=== PATIENT | female | born 1955 | race Caucasian/White ===

== ENCOUNTER 2018-09-11 15:23 | Emergency (ER) | payer MEDICAID ==
[2018-09-11] MEDS ORDERED: BENZONATATE 100 MG CAPSULE PO ONE (15:38)
[2018-09-11] MEDS ORDERED: AZITHROMYCIN 500 MG TABLET PO ONE (15:38)
--- NOTE | 2018-09-11 15:44 | Emergency Department Record ---
History of Present Illness - General Chief Complaint: Cough Stated Complaint: COUGH,RIB PAIN, Time Seen by Provider: 09/11/18 15:34 Source: Patient Mode of Arrival: Ambulatory Limitations: No limitations - History of Present Illness Initial Comments: 63 yo female presents with a cough for three weeks. She states it has been only minimally productive. No fever. She cough more at night than the daytime. No blood in the sputum. She smokes. At times she coughs very hard and it hurts over the right ribs. No rash. No history of shingles. No COPD history per the patient . No nausea, vomiting, diarrhea. No chest pain or shortness of breath. MD Complaint: Cough, Nasal congestion -: Week(s) (3) Severity: Moderate Severity scale (1-10): 1 Quality: Sharp Consistency: Constant Improves With: Other (avoiding coughing) Context: Other Associated Symptoms: Cough - Related Data Previous Rx's Medication Instructions Recorded Azithromycin [Zithromax] 250 mg PO DAILY #4 tab 09/11/18 Benzonatate [Tessalon] 100 mg PO Q8H #20 capsule 09/11/18 Allergies Allergy/AdvReac Type Severity Reaction Status Date / Time No Known Drug Allergies Allergy Verified 09/11/18 15:33 Travel Screening - Travel/Exposure Within Last 30 Days Have you traveled within the last 30 days?: No - Travel/Exposure Within Last Year Have you traveled outside the [place] in the last year?: No - Additonal Travel Details Have you been exposed to anyone with a communicable illness?: No - Travel Symptoms Symptom Screening: None Review of Systems Constitutional: Denies: Chills, Fever, Malaise, Weakness Eyes: Denies: Eye discharge ENT: Reports: Congestion. Denies: Ear pain, Epistaxis, Throat pain Respiratory: Reports: Cough. Denies: Dyspnea, Hemoptysis, Stridor, Wheezes Cardiovascular: Reports: Chest pain (ribs on the right with forced cough) Endocrine: Denies: Fatigue, Polydipsia, Polyuria Gastrointestinal: Denies: Abdominal pain, Diarrhea, Nausea, Vomiting Genitourinary: Denies: Dysuria Musculoskeletal: Denies: Arthralgia, Back pain, Joint swelling, Myalgia, Neck pain Skin: Denies: Bruising, Change in color, Rash Neurological: Denies: Confusion Psychiatric: Denies: Anxiety Hematological/Lymphatic: Denies: Easy bleeding, Easy bruising Past Medical History - SOCIAL HISTORY Smoking Status: Light tobacco smoker (<10/day) Alcohol Use: None Drug Use: None - RESPIRATORY Hx Respiratory Disorders: No - CARDIOVASCULAR Hx Cardio Disorders: No - NEURO Hx Neuro Disorders: No - GI Hx GI Disorders: No - Hx Genitourinary Disorders: No - ENDOCRINE Hx Endocrine Disorders: No Hx Diabetes: No Hx Thyroid Disease: No - MUSCULOSKELETAL Hx Musculoskeletal Disorders: No - PSYCH Hx Psych Problems: No - HEMATOLOGY/ONCOLOGY Hx Hematology/Oncology Disorders: No Hx Cancer: No Family Medical History Any Significant Family History?: Yes Family Hx Comment (NOT TO BE USED IN PLACE OF ITEMS BELOW): denies Physical Exam - General General Appearance: Alert, Oriented x3, Cooperative, No acute distress Limitations: No limitations - Head Head exam: Atraumatic, Normal inspection - Eye Eye exam: Normal appearance, PERRL. negative: Conjunctival injection - ENT ENT exam: Normal exam Ear exam: Normal external inspection Nasal Exam: Normal inspection Mouth exam: Normal external inspection Teeth exam: Other (no teeth) Throat exam: Normal inspection - Neck Neck exam: Normal inspection, Full ROM. negative: Lymphadenopathy - Respiratory Respiratory exam: Normal lung sounds bilaterally, Chest wall tenderness (tender right side, anterior under the right breast) - Cardiovascular Cardiovascular Exam: Regular rate, Normal rhythm, Normal heart sounds. negative: Diastolic murmur, Irregular rhythm, Systolic murmur Peripheral Pulses: 2+: Radial (R), Radial (L) - GI/Abdominal GI/Abdominal exam: Soft. negative: Distended, Guarding, Tenderness - Rectal Rectal exam: Deferred - exam: Deferred - Extremities Extremities exam: Normal inspection. negative: Calf tenderness, Pedal edema, Tenderness - Back Back exam: Denies: CVA tenderness (R), CVA tenderness (L) - Neurological Neurological exam: Alert, Oriented X3 - Psychiatric Psychiatric exam: Normal affect, Normal mood - Skin Skin exam: Dry, Intact, Normal color, Warm, Other (No shingles rash on the area on pain) Course Vital Signs 09/11/18 15:25 Temperature 98.3 F Pulse Rate 97 H Respiratory 18 Rate Blood Pressure 159/83 Pulse Ox 96 - Reevaluation(s) Reevaluation #1: 09/11/18 16:18 The chest XR was reviewed No acute changes. No mass or infiltrate She was encourage to have close follow up with her PCP in the next week if not improved Disposition Disposition: Discharge Clinical Impression: Bronchitis Disposition: Home, Self-Care Condition: (1) Good Instructions: Acute Bronchitis (ED) Additional Instructions: Call your doctor for the next available follow up appointment Review this ER visit and the tests performed with your family doctor Return to the ER for a recheck if worse, any new concerns or questions Take the prescriptions provided as directed Prescriptions: Benzonatate [Tessalon] 100 mg PO Q8H #20 capsule Azithromycin [Zithromax] 250 mg PO DAILY #4 tab Forms: Patient Portal Access Time of Disposition: 16:18 Quality - Quality Measures Quality Measures: N/A - Blood Pressure Screening Does Patient Have Any of the Following: No Blood Pressure Classification: Pre-Hypertensive BP Reading Systolic Measurement: 159 Diastolic Measurement: 83 Screening for High Blood Pressure: < Pre-Hypertensive BP, F/U Documented > [G8950] Pre-Hypertensive Follow-up Interventions: Referral to alternative/primary care provider.
--- NOTE | 2018-09-12 07:53 | RADIOLOGY REPORT ---
EXAM: CHEST, TWO VIEWS HISTORY: COUGH A FEW TIMES A WEEK. TECHNIQUE: Frontal and lateral views of the chest were obtained. FINDINGS: The cardiomediastinal silhouette is normal in size. Calcification is noted within the aorta. The pulmonary vasculature is not overly congested. No focal consolidation, pleural effusion, or pneumothorax is evident. IMPRESSION: NO EVIDENCE FOR PNEUMONIA OR PULMONARY EDEMA. JOB NUMBER: [id number] MTDD
== END 2018-09-11 16:30 | disposition home or self-care (01) ==
LOC: ER 15:23
DX: J20.9 Acute bronchitis, unspecified (principal); F17.210 Nicotine dependence, cigarettes, uncomplicated
CPT/HCPCS: 71046; 99283

== ENCOUNTER 2018-09-21 18:28 | Observation (INO) | payer MEDICAID ==
[2018-09-21] MEDS ORDERED: IPRATROPIUM/ALBUTEROL (0.5MG/3MG) NEB INH ONE (18:47)
[2018-09-21] MEDS ORDERED: METHYLPREDNISOLONE PF 125MG/VIAL IVP ONE (18:47)
--- NOTE | 2018-09-21 18:51 | Emergency Department Record ---
History of Present Illness - General Chief Complaint: Cough Stated Complaint: COUGHING/HERE ON TUESDAY Time Seen by Provider: 09/21/18 18:42 Source: Patient, Family Mode of Arrival: Ambulatory Limitations: No limitations - History of Present Illness Initial Comments: 63 yo female presents with a persistent cough and wheeze for the last two weeks. She denies fever. It does hurt to cough. She has minimal productive sputum. She was seen in the ED 10 days ago. She finished an antibiotic. No improvement. She does continue to smoke. The ribs on both sides hurt with the coughing. No hemoptysis. She has not seen her PCP in the interim. MD Complaint: Cough, Nasal congestion Onset/Timin -: Week(s) Severity: Moderate Quality: Aching Consistency: Constant Improves With: Nothing Worsens With: Other (coughing) Context: Sick contacts Associated Symptoms: Cough Treatments Prior to Arrival: Antibiotics - Related Data Home Medications Medication Instructions Recorded Confirmed Last Taken Cholecalciferol (Vitamin D3) 5,000 unit PO DAILY 09/21/18 09/21/18 09/21/18 [Vitamin D3] Previous Rx's Medication Instructions Recorded Azithromycin 250 mg PO DAILY #6 tablet 09/21/18 Benzonatate [Tessalon] 1 cap PO Q8H PRN #20 cap 09/21/18 Hydrocodone/APAP 5/325Mg [[place] 1 each PO Q6H #12 tab 09/21/18 5Mg/325Mg] Prednisone [Prednisone 20Mg] 20 mg PO BID #10 tab 09/21/18 Allergies Allergy/AdvReac Type Severity Reaction Status Date / Time No Known Drug Allergies Allergy Verified 09/21/18 18:32 Travel Screening - Travel/Exposure Within Last 30 Days Have you traveled within the last 30 days?: No - Travel/Exposure Within Last Year Have you traveled outside the [place] in the last year?: No - Additonal Travel Details Have you been exposed to anyone with a communicable illness?: No - Travel Symptoms Symptom Screening: None Review of Systems Constitutional: Denies: Chills, Fever, Malaise, Weakness Eyes: Denies: Eye discharge, Eye pain, Photophobia, Vision change ENT: Reports: Congestion. Denies: Throat pain Respiratory: Reports: Cough, Wheezes. Denies: Hemoptysis Cardiovascular: Reports: Chest pain (with coughing both sided of the lower ribs hurt) Endocrine: Denies: Fatigue, Polydipsia, Polyuria Gastrointestinal: Denies: Abdominal pain, Diarrhea, Nausea, Vomiting Genitourinary: Denies: Dysuria Musculoskeletal: Denies: Arthralgia, Back pain, Myalgia, Neck pain Skin: Denies: Bruising, Change in color, Rash Neurological: Denies: Headache, Numbness Psychiatric: Denies: Anxiety Hematological/Lymphatic: Denies: Easy bleeding, Easy bruising Past Medical History - SOCIAL HISTORY Smoking Status: Light tobacco smoker (<10/day) Alcohol Use: None Drug Use: None - RESPIRATORY Hx Respiratory Disorders: No - CARDIOVASCULAR Hx Cardio Disorders: No - NEURO Hx Neuro Disorders: No - GI Hx GI Disorders: No - Hx Genitourinary Disorders: No - ENDOCRINE Hx Endocrine Disorders: No Hx Diabetes: No Hx Thyroid Disease: No - MUSCULOSKELETAL Hx Musculoskeletal Disorders: No - PSYCH Hx Psych Problems: No - HEMATOLOGY/ONCOLOGY Hx Hematology/Oncology Disorders: No Hx Cancer: No Family Medical History Any Significant Family History?: No Family Hx Comment (NOT TO BE USED IN PLACE OF ITEMS BELOW): denies Physical Exam - General General Appearance: Alert, Oriented x3, Cooperative, No acute distress Limitations: No limitations - Head Head exam: Atraumatic, Normocephalic, Normal inspection - Eye Eye exam: Normal appearance, PERRL. negative: Conjunctival injection, Scleral icterus - ENT ENT exam: Normal exam, Mucous membranes moist Ear exam: Normal external inspection Nasal Exam: Normal inspection Mouth exam: Normal external inspection - Neck Neck exam: Normal inspection. negative: Lymphadenopathy - Respiratory Respiratory exam: Chest wall tenderness (Tender bilateral lower ribs ), Decreased breath sounds, Wheezes. negative: Normal lung sounds bilaterally - Cardiovascular Cardiovascular Exam: Regular rate, Normal rhythm, Normal heart sounds - GI/Abdominal GI/Abdominal exam: Soft. negative: Tenderness - Rectal Rectal exam: Deferred - exam: Deferred - Extremities Extremities exam: Normal inspection, Full ROM. negative: Calf tenderness, Pedal edema, Tenderness - Back Back exam: Denies: CVA tenderness (R), CVA tenderness (L), Paraspinal tenderness, Tenderness, Vertebral tenderness - Neurological Neurological exam: Alert, Oriented X3 - Psychiatric Psychiatric exam: Normal affect, Normal mood - Skin Skin exam: Dry, Intact, Normal color, Warm Course Vital Signs 09/21/18 18:34 Temperature 98 F Pulse Rate 95 H Respiratory 20 Rate Blood Pressure 155/89 Pulse Ox 96 - Reevaluation(s) Reevaluation #1: 09/21/18 18:52 Normal XR on 09/1109/21/18 19:29 The labs were reviewed K is 2.8 EKG ordered The D-dimer is elevated. CTA ordered 09/21/18 19:54 I was informed the CT at [facility] is non functional The patient was informed of our need to transport her to [facility] radiology for the CT EKG #1: 19:37 Rate: 93 Rhythm: sinus [place]: normal Intervals: normal ST segments: normal rsr' Prior: non 09/21/18 22:44 09/21/18 23:[address] was reviewed. No PE, small R effusion, mildly displaced R 6,7,8th rib fractures. The results were discussed with the patient. Her saturations are in the upper 80's to 90. I discussed that she has early epmphysema and needs to stop smoking. Respiratory will see the patient for instructions for an inhaler and I/S. We discussed treatment of the COPD and rib fractures. The pain is there but tolerable. 09/21/18 23:39 The repeat potassium remained low at 2.8 Given her multiple rib fractures, low potassium and marginal oxygenation levels she will be observed 09/22/18 00:11 Medical Decision Making - Lab Data Result diagrams: 09/21/18 19:04 09/21/18 23:59 Disposition Disposition: Admit Clinical Impression: Hypokalemia, Rib fractures, Bronchitis, Hypoxia Disposition: Still a Patient at [facility] Decision to Admit: Admit from ER Decision to Admit Date: 09/22/18 Decision to Admit Time: 00:22 Condition: (1) Good Time of Disposition: 23:46 Quality - Quality Measures Quality Measures: N/A - Blood Pressure Screening Does Patient Have Any of the Following: No Blood Pressure Classification: Pre-Hypertensive BP Reading Systolic Measurement: 155 Diastolic Measurement: 89 Screening for High Blood Pressure: < Pre-Hypertensive BP, F/U Documented > [G8950] Pre-Hypertensive Follow-up Interventions: Referral to alternative/primary care provider.
[2018-09-21 19:09] LABS: ABSOLUTE NEUTROPHIL COUNT 4.37; BASO % 0.8 % (0-6); EOS % 3.5 % (0-6); GRAN % 58.1 % (47-80); HEMATOCRIT 38.2 % (35.0-47.0); HEMOGLOBIN 12.4 gm/dl (11.6-16.0); LYMPH % 28.6 % (16-45); MEAN CELL VOLUME 91.6 fl (81-97); MEAN CORPUSCULAR HEMOGLOBIN 29.7 pg (27-33); MEAN CORPUSCULAR HGB CONC 32.5 g/dl (32-36); MEAN PLATELET VOLUME 9.9 fl (7.4-10.4); PLATELET COUNT 461 K/uL (130-400); RED BLOOD COUNT 4.17 M/uL (3.80-5.40); RED CELL DISTRIBUTION WIDTH 14.6 % (11.5-14.5); WHITE BLOOD COUNT W/O DIFF 7.5 K/uL (4.2-12.2)
[2018-09-21 19:17] LABS: BLOOD UREA NITROGEN 10 mg/dL (8-23); CREATININE 0.8 mg/dL (0.5-0.9); EST GLOMERULAR FILTRATION RATE > 60 mL/min
[2018-09-21 19:20] LABS: GLUCOSE,RANDOM 109 mg/dL (74-109)
[2018-09-21] MEDS ORDERED: SOD CHLOR 0.9% WITH KCL 40MEQ 40 MEQ/1,000 ML IV.SOLN IV ONE (19:28)
[2018-09-21] MEDS ORDERED: HYDROCODONE/APAP 5/325MG TABLET PO ONE (23:33)
[2018-09-21] MEDS ORDERED: ALBUTEROL HFA 8 GM INHALER INH ONE (23:33)
[2018-09-22] MEDS ORDERED: SOD CHLOR 0.9% WITH KCL 40MEQ 40 MEQ/1,000 ML IV.SOLN IV ONE (00:36)
[2018-09-22] MEDS ORDERED: ALBUTEROL SULFATE (0.083%) 2.5 MG/3 ML NEB INH PRN (00:36)
[2018-09-22] MEDS: IPRATROPIUM/ALBUTEROL (0.5MG/3MG) NEB INH SCH ×4 (06:16→17:51)
[2018-09-22 06:43] LABS: ALB/GLOB RATIO 1.2 (1.1-1.8); ALBUMIN 3.2 g/dL (4.0-5.0); ALKALINE PHOSPHATASE 89 U/L (35-104); ALT/SGPT 21 U/L (<33); AST/SGOT 18 U/L (10.0-35.0); BLOOD UREA NITROGEN 13 mg/dL (8-23); CREATININE 0.6 mg/dL (0.5-0.9); EST GLOMERULAR FILTRATION RATE > 60 mL/min; GLUCOSE,RANDOM 149 mg/dL (74-109); TOTAL PROTEIN 5.8 g/dL (6.6-8.7)
--- NOTE | 2018-09-22 09:21 | History & Physical ---
History of Present Illness - Date of Service Date of Service for History & Physical: 09/22/18 - History of Present Illness Admitting Diagnosis: multiple rib fractures, copd, hypokalemia History of Present Illness: Mrs. Gonzales is a 63 y/o female who comes in with complaint of ongoing cough which was non-productive for the past 2 weeks. She initially came to [facility] ED on September 13 and was given antibiotics which she says didn't resolve her symptoms and she continued to cough. The patient also notes having abdominal pain which she says has gotten progressively worse, especially when she coughs. She has a 40 pack year smoking history but says that she now only smokes 5 cigarettes daily. She denies history of COPD and does not use inhalers at home. Denies fevers, chills, shortness of breath or chest pain. In the ED a CTA was done to rule out PE due to elevated D-dimer. ED course: Labs: hypokalemia, K+ 2.8, CTA negative for PE but showed emphysema and 5,6,7th right rib fractures. PCP: Dr. Burke Hawthorne. Travel Screening - Travel/Exposure Within Last 30 Days Have you traveled within the last 30 days?: No - Travel/Exposure Within Last Year Have you traveled outside the [place] in the last year?: No - Additonal Travel Details Have you been exposed to anyone with a communicable illness?: No Exposure Details:: [facility] - Travel Symptoms Symptom Screening: None Review of Systems Constitutional: Denies: Chills, Fever, Malaise, Weakness Eyes: Denies: Eye discharge, Eye pain, Photophobia, Vision change ENT: Reports: Congestion. Denies: Throat pain Respiratory: Reports: Cough, Wheezes. Denies: Hemoptysis Cardiovascular: Reports: Chest pain (with coughing both sided of the lower ribs hurt) Endocrine: Denies: Fatigue, Polydipsia, Polyuria Gastrointestinal: Denies: Abdominal pain, Diarrhea, Nausea, Vomiting Genitourinary: Denies: Dysuria Musculoskeletal: Denies: Arthralgia, Back pain, Myalgia, Neck pain Skin: Denies: Bruising, Change in color, Rash Neurological: Denies: Headache, Numbness Psychiatric: Denies: Anxiety Hematological/Lymphatic: Denies: Easy bleeding, Easy bruising Past Medical History - SOCIAL HISTORY Smoking Status: Light tobacco smoker (<10/day) Alcohol Use: None Drug Use: None - RESPIRATORY Hx Respiratory Disorders: No - CARDIOVASCULAR Hx Cardio Disorders: No - NEURO Hx Neuro Disorders: No - GI Hx GI Disorders: No - Hx Genitourinary Disorders: No - ENDOCRINE Hx Endocrine Disorders: No Hx Diabetes: No Hx Thyroid Disease: No - MUSCULOSKELETAL Hx Musculoskeletal Disorders: No - PSYCH Hx Psych Problems: No - HEMATOLOGY/ONCOLOGY Hx Hematology/Oncology Disorders: No Hx Cancer: No Family Medical History Any Significant Family History?: No Family Hx Comment (NOT TO BE USED IN PLACE OF ITEMS BELOW): denies H&P Meds/Allergies - Allergies Allergies: Allergies Allergy/AdvReac Type Severity Reaction Status Date / Time No Known Drug Allergies Allergy Verified 09/21/18 18:32 - Home Medications Home Medications Medication Instructions Recorded Confirmed Last Taken Cholecalciferol (Vitamin D3) 5,000 unit PO DAILY 09/21/18 09/21/18 09/21/18 [Vitamin D3] Previous Rx's Medication Instructions Recorded Azithromycin 250 mg PO DAILY #6 tablet 09/21/18 Benzonatate [Tessalon] 1 cap PO Q8H PRN #20 cap 09/21/18 Hydrocodone/APAP 5/325Mg [[place] 1 each PO Q6H #12 tab 09/21/18 5Mg/325Mg] Prednisone [Prednisone 20Mg] 20 mg PO BID #10 tab 09/21/18 - Active Medications Active Medications: Current Medications Albuterol Sulfate (Albuterol Sulfate) 2.5 mg INH RESP.Q4H PRN PRN Reason: DIFFICULTY IN BREATHING Albuterol/Ipratropium (Duoneb) 3 ml INH RESP.Q4H.[facility] Last Admin: 09/22/18 06:16 Dose: 3 ml Documented by: Azithromycin (Zithromax) 500 mg PO DAILY [facility] Methylprednisolone Sodium Succinate (Solu-Medrol) 60 mg IVP DAILY [facility] Vitamin D (Vitamin D3) 5,000 unit PO DAILY [facility] Physical Exam - Vital Signs Vital Signs: Vital Signs - Last 24 Hrs Temp Pulse Pulse Pulse Resp BP BP 09/22/18 08:00 98.0 F 95 H 17 160/79 09/22/18 06:17 09/22/18 06:16 96 H 20 09/22/18 02:06 80 88 20 09/22/18 00:45 98.4 F 88 20 138/71 09/22/18 00:16 09/22/18 00:14 89 160/90 09/21/18 23:39 94 H 22 09/21/18 23:34 91 H 28 H 160/87 09/21/18 23:23 94 H 140/69 09/21/18 23:07 91 H 145/79 09/21/18 22:53 92 H 141/73 09/21/18 22:03 170/84 09/21/18 21:44 93 H 159/62 09/21/18 21:34 93 H 161/81 09/21/18 21:24 163/94 09/21/18 21:06 88 24 137/89 09/21/18 20:25 88 20 147/81 09/21/18 18:57 86 20 09/21/18 18:34 98 F 95 H 20 155/89 Pulse Ox 09/22/18 08:00 93 L 09/22/18 06:17 96 09/22/18 06:16 96 09/22/18 02:06 09/22/18 00:45 94 L 09/22/18 00:16 94 L 09/22/18 00:14 90 L 09/21/18 23:39 09/21/18 23:34 92 L 09/21/18 23:23 92 L 09/21/18 23:07 92 L 09/21/18 22:53 92 L 09/21/18 22:03 92 L 09/21/18 21:44 92 L 09/21/18 21:34 93 L 09/21/18 21:24 94 L 09/21/18 21:06 93 L 09/21/18 20:25 96 09/21/18 18:57 96 09/21/18 18:34 96 - General General Appearance: Alert, Oriented x3, Cooperative, No acute distress Limitations: No limitations - Head Head exam: Atraumatic, Normocephalic, Normal inspection - Eye Eye exam: Normal appearance, PERRL. negative: Conjunctival injection, Scleral icterus - ENT ENT exam: Normal exam, Mucous membranes moist Ear exam: Normal external inspection Nasal Exam: Normal inspection Mouth exam: Normal external inspection - Neck Neck exam: Normal inspection. negative: Lymphadenopathy - Respiratory Respiratory exam: Chest wall tenderness (Tender bilateral lower ribs ), Decreased breath sounds, Wheezes (upper lung keller). negative: Normal lung sounds bilaterally - Cardiovascular Cardiovascular Exam: Regular rate, Normal rhythm, Normal heart sounds Peripheral Pulses: 3+: Radial (R), Radial (L), Dorsalis Pedis (R), Dorsalis Pedis (L) - GI/Abdominal GI/Abdominal exam: Soft. negative: Tenderness - Rectal Rectal exam: Deferred - exam: Deferred - Extremities Extremities exam: Normal inspection, Full ROM. negative: Calf tenderness, Pedal edema, Tenderness - Back Back exam: Denies: CVA tenderness (R), CVA tenderness (L), Paraspinal tenderness, Tenderness, Vertebral tenderness - Neurological Neurological exam: Alert, Oriented X3 - Psychiatric Psychiatric exam: Normal affect, Normal mood - Skin Skin exam: Dry, Intact, Normal color, Warm Results - Labs Result Diagrams: 09/21/18 19:04 09/22/18 06:15 Labs Last 24 Hours: Laboratory Results - last 24 hr 09/21/18 09/21/18 09/21/18 19:04 19:04 19:04 WBC 7.5 RBC 4.17 Hgb 12.4 Hct 38.2 MCV 91.6 MCH 29.7 MCHC 32.5 RDW 14.6 H Plt Count 461 H MPV 9.9 Gran % 58.1 Lymphocytes % 28.6 Monocytes % 9.0 Eosinophils % 3.5 Basophils % 0.8 Absolute Neutrophils 4.37 D-Dimer 2.13 H Sodium 146 H Potassium 2.8 L* Chloride 104 Carbon Dioxide 30.0 H Anion Gap 12.0 BUN 10 Creatinine 0.8 Estimated GFR > 60 Random Glucose 109 Calcium 8.8 Total Bilirubin AST ALT Alkaline Phosphatase Total Protein Albumin Globulin Albumin/Globulin Ratio 09/21/18 09/22/18 23:59 06:15 WBC RBC Hgb Hct MCV MCH MCHC RDW Plt Count MPV Gran % Lymphocytes % Monocytes % Eosinophils % Basophils % Absolute Neutrophils D-Dimer Sodium 147 H Potassium 2.8 L* 4.0 Chloride 110 H Carbon Dioxide 28.0 Anion Gap 9.0 BUN 13 Creatinine 0.6 Estimated GFR > 60 Random Glucose 149 H Calcium 8.5 L Total Bilirubin 0.30 AST 18 ALT 21 Alkaline Phosphatase 89 Total Protein 5.8 L Albumin 3.2 L Globulin 2.6 Albumin/Globulin Ratio 1.2 VTE H&P Assessment - Risk for VTE Risk for VTE: Yes Risk Level: High Risk Assessment Date: 09/22/18 Risk Assessment Time: 09:16 VTE Orders Placed or Will Be Placed: Yes Plan - Detailed Diagnosis and Plan (1) Bronchitis Current Visit: Yes Status: Acute Base Code: J40 - BRONCHITIS, NOT SPECIFIED ACUTE OR CHRONIC Comment: 09/22/17: - Peristient non-productive cough likely 2/2 COPD. - CTA: negative for PE but with indication of emphysetamous changes. - 40 pk yr smoking hx. - Oxygen to keep sats > 92% - Duonebs q4H LANG, Albuterol nebs Q4H PRN, D/C Solumderol and start PO Prednisone 40mg QD. (2) Emphysema lung Current Visit: Yes Status: Acute Base Code: J43.9 - EMPHYSEMA, UNSPECIFIED Comment: 09/22/18: - CTA incidental finding of emphysema of the lungs. - 40 pk/yr smoking hx - Duonebs/Albuterol ordered Q4H. - Needs PFTs and further education for COPD as an outpatient. - Smoking cessation srongly encouraged. (3) Hypokalemia Current Visit: Yes Status: Acute Base Code: E87.6 - HYPOKALEMIA Comment: 09/22/18: - K 2.8 - Repleted with 40 meq IV and continuos in IVF. - Repeat K 4.0 (4) Rib fractures Current Visit: Yes Status: Acute Base Code: S22.39XA - FRACTURE OF ONE RIB, UNSP SIDE, INIT FOR CLOS FX Comment: 09/22/18: - Right 6,7,8th ribs fractrure likely 2/2 to violent cough. - [place] 5/325mg Q4H PRN. - Incentive Spirometery. (5) DVT prophylaxis Current Visit: Yes Status: Acute Base Code: Z29.9 - ENCOUNTER FOR PROPHYLACTIC MEASURES, UNSPECIFIED Comment: 09/22/18: - Lovenox 40 mg Sq, QD. (6) Smoker Current Visit: Yes Status: Acute Base Code: F17.200 - NICOTINE DEPENDENCE, UNSPECIFIED, UNCOMPLICATED Comment: 09/22/18: - 40 pk/yr hx - Nicotine patch ordered. (7) Full code status Current Visit: Yes Status: Acute Base Code: Z78.9 - OTHER SPECIFIED HEALTH STATUS Comment: 09/22/18: - Full code status.
[2018-09-22] MEDS ORDERED: HYDROCODONE/APAP 5/325MG TABLET PO ONE (09:34)
[2018-09-22] MEDS: BENZONATATE 100 MG CAPSULE PO PRN ×2 (09:46→15:52)
[2018-09-22] MEDS: HYDROCODONE/APAP 5/325MG TABLET PO PRN ×2 (09:47→15:54)
[2018-09-22] MEDS: NICOTINE 21 MG/24 HOUR PATCH TD SCH ×2 (09:48→09:54)
[2018-09-22] MEDS ORDERED: POTASSIUM CHLORIDE 20 MEQ TABLET PO SCH (10:00)
[2018-09-22] MEDS ORDERED: CHOLECALCIFEROL 1,000 UNIT TABLET PO SCH (10:00)
[2018-09-22] MEDS ORDERED: ENOXAPARIN 40 MG/0.4 ML SYR SC SCH (10:00)
[2018-09-22] MEDS ORDERED: METHYLPREDNISOLONE PF 125MG/VIAL IVP SCH (10:00)
[2018-09-22] MEDS ORDERED: AZITHROMYCIN 500 MG TABLET PO SCH (10:00)
--- NOTE | 2018-09-22 16:36 | Discharge Summary ---
Providers Discharge Summary Date: 09/22/18 Date of admission: 09/22/18 00:39 Attending physician: BETTYE GONZALEZ Primary care physician: BURKE HAWTHORNE D.O. Physical Exam - Vital Signs Vital Signs: Vital Signs - Last 24 Hrs Temp Pulse Pulse Pulse Resp BP BP 09/22/18 13:44 92 H 18 09/22/18 10:04 97 H 18 09/22/18 09:00 95 H 18 09/22/18 08:00 98.0 F 95 H 17 160/79 09/22/18 06:17 09/22/18 06:16 96 H 20 09/22/18 02:06 80 88 20 09/22/18 00:45 98.4 F 88 20 138/71 09/22/18 00:16 09/22/18 00:14 89 160/90 09/21/18 23:39 94 H 22 09/21/18 23:34 91 H 28 H 160/87 09/21/18 23:23 94 H 140/69 09/21/18 23:07 91 H 145/79 09/21/18 22:53 92 H 141/73 09/21/18 22:03 170/84 09/21/18 21:44 93 H 159/62 09/21/18 21:34 93 H 161/81 09/21/18 21:24 163/94 09/21/18 21:06 88 24 137/89 09/21/18 20:25 88 20 147/81 09/21/18 18:57 86 20 09/21/18 18:34 98 F 95 H 20 155/89 Pulse Ox 09/22/18 13:44 94 L 09/22/18 10:04 94 L 09/22/18 09:00 09/22/18 08:00 93 L 09/22/18 06:17 96 09/22/18 06:16 96 09/22/18 02:06 09/22/18 00:45 94 L 09/22/18 00:16 94 L 09/22/18 00:14 90 L 09/21/18 23:39 09/21/18 23:34 92 L 09/21/18 23:23 92 L 09/21/18 23:07 92 L 09/21/18 22:53 92 L 09/21/18 22:03 92 L 09/21/18 21:44 92 L 09/21/18 21:34 93 L 09/21/18 21:24 94 L 09/21/18 21:06 93 L 09/21/18 20:25 96 09/21/18 18:57 96 09/21/18 18:34 96 - General General Appearance: Alert, Oriented x3, Cooperative, No acute distress Limitations: No limitations - Head Head exam: Atraumatic, Normocephalic, Normal inspection - Eye Eye exam: Normal appearance, PERRL. negative: Conjunctival injection, Scleral icterus - ENT ENT exam: Normal exam, Mucous membranes moist Ear exam: Normal external inspection Nasal Exam: Normal inspection Mouth exam: Normal external inspection - Neck Neck exam: Normal inspection. negative: Lymphadenopathy - Respiratory Respiratory exam: Chest wall tenderness (Tender bilateral lower ribs ), Decreased breath sounds, Wheezes (upper lung keller). negative: Normal lung sounds bilaterally - Cardiovascular Cardiovascular Exam: Regular rate, Normal rhythm, Normal heart sounds Peripheral Pulses: 3+: Radial (R), Radial (L), Dorsalis Pedis (R), Dorsalis Pedis (L) - GI/Abdominal GI/Abdominal exam: Soft. negative: Tenderness - Rectal Rectal exam: Deferred - exam: Deferred - Extremities Extremities exam: Normal inspection, Full ROM. negative: Calf tenderness, Pedal edema, Tenderness - Back Back exam: Denies: CVA tenderness (R), CVA tenderness (L), Paraspinal tenderness, Tenderness, Vertebral tenderness - Neurological Neurological exam: Alert, Oriented X3 - Psychiatric Psychiatric exam: Normal affect, Normal mood - Skin Skin exam: Dry, Intact, Normal color, Warm Hospitalization - Hospitalization Admission Diagnosis: multiple rib fractures, copd, hypokalemia - Problem List/Discharge Diagnosis (1) Bronchitis Status: Acute Base Code: J40 - BRONCHITIS, NOT SPECIFIED ACUTE OR CHRONIC Comment: 09/22/17: - Peristient non-productive cough likely 2/2 COPD. - CTA: negative for PE but with indication of emphysetamous changes. - 40 pk yr smoking hx. - Oxygen to keep sats > 92% - Duonebs q4H LANG, Albuterol nebs Q4H PRN, D/C Solumderol and start PO Prednisone 40mg QD. (2) Emphysema lung Status: Acute Base Code: J43.9 - EMPHYSEMA, UNSPECIFIED Comment: 09/22/18: - CTA incidental finding of emphysema of the lungs. - 40 pk/yr smoking hx - Duonebs/Albuterol ordered Q4H. - Needs PFTs and further education for COPD as an outpatient. - Smoking cessation srongly encouraged. (3) Hypokalemia Status: Acute Base Code: E87.6 - HYPOKALEMIA Comment: 09/22/18: - K 2.8 - Repleted with 40 meq IV and continuos in IVF. - Repeat K 4.0 (4) Rib fractures Status: Acute Base Code: S22.39XA - FRACTURE OF ONE RIB, UNSP SIDE, INIT FOR CLOS FX Comment: 09/22/18: - Right 6,7,8th ribs fractrure likely 2/2 to violent cough. - Blackwell 5/325mg Q4H PRN. - Incentive Spirometery. (5) DVT prophylaxis Status: Acute Base Code: Z29.9 - ENCOUNTER FOR PROPHYLACTIC MEASURES, UNSPECIFIED Comment: 09/22/18: - Lovenox 40 mg Sq, QD. (6) Smoker Status: Acute Base Code: F17.200 - NICOTINE DEPENDENCE, UNSPECIFIED, UNCOMPLICATED Comment: 09/22/18: - 40 pk/yr hx - Nicotine patch ordered. (7) Full code status Status: Acute Base Code: Z78.9 - OTHER SPECIFIED HEALTH STATUS Comment: 09/22/18: - Full code status. - Hospitalization Course Disposition: Home, Self-Care Hospital Course: Mrs. Gonzales is a 63 y/o female who comes in with complaint of ongoing cough which was non-productive for the past 2 weeks. She initially came to [facility] ED on September 13 and was given antibiotics which she says didn't resolve her symptoms and she continued to cough. The patient also notes having abdominal pain which she says has gotten progressively worse, especially when she coughs. She has a 40 pack year smoking history but says that she now only smokes 5 cigarettes daily. She denies history of COPD and does not use inhalers at home. Denies fevers, chills, shortness of breath or chest pain. In the ED a CTA was done to rule out PE due to elevated D-dimer. ED course: Labs: hypokalemia, K+ 2.8, CTA negative for PE but showed emphysema and 5,6,7th right rib fractures. PCP: Dr. Burke Hawthorne. Procedures: Cardiology Procedures 09/21/18 18:47 Thermodynamics Professor NOW 09/21/18 19:29 EKG NOW 09/22/18 00:36 Thermodynamics Professor .Continuous Abnormal Labs: Abnormal Lab Results 09/21/18 09/21/18 09/21/18 Range/Units 19:04 19:04 19:04 RDW 14.6 H (11.5-14.5) % Plt Count 461 H (130-400) K/uL D-Dimer 2.13 H (0-0.59) mg/L FEU Sodium 146 H (136-145) mmol/L Potassium 2.8 L* (3.4-4.5) mmol/L Chloride (98-107) mmol/L Carbon Dioxide 30.0 H (22-29) mmol/L Random Glucose (74-109) mg/dL Calcium (8.8-10.2) mg/dL Total Protein (6.6-8.7) g/dL Albumin (4.0-5.0) g/dL 09/21/18 09/22/18 Range/Units 23:59 06:15 RDW (11.5-14.5) % Plt Count (130-400) K/uL D-Dimer (0-0.59) mg/L FEU Sodium 147 H (136-145) mmol/L Potassium 2.8 L* (3.4-4.5) mmol/L Chloride 110 H (98-107) mmol/L Carbon Dioxide (22-29) mmol/L Random Glucose 149 H (74-109) mg/dL Calcium 8.5 L (8.8-10.2) mg/dL Total Protein 5.8 L (6.6-8.7) g/dL Albumin 3.2 L (4.0-5.0) g/dL Condition at Discharge: (1) Good Discharge Medications - Discharge Medications Prescriptions: Azithromycin 250 mg PO DAILY #6 tablet Prednisone [Deltasone] 40 mg PO DAILY 4 Days #8 tablet Hydrocodone/Acetaminophen [Blackwell 10mg/325mg] 1 tab PO BID PRN #14 tab PRN Reason: Pain - General Prednisone [Prednisone 20Mg] 20 mg PO BID #10 tab Budesonide/Formoterol Fumarate [Symbicort 80-4.5 Mcg Inhaler] 6.9 gm IH BID #1 hfa.aer.ad Benzonatate [Tessalon Perle] 100 mg PO TID PRN #21 capsule PRN Reason: Cough Benzonatate [Tessalon] 1 cap PO Q8H PRN #20 cap PRN Reason: Cough Azithromycin [Zithromax] 500 mg PO DAILY #4 tab Home Medications: Ambulatory Orders Azithromycin 250 mg PO DAILY #6 tablet 09/21/18 [Last Taken Unknown] Benzonatate [Tessalon] 1 cap PO Q8H PRN #20 cap 09/21/18 [Last Taken Unknown] Cholecalciferol (Vitamin D3) [Vitamin D3] 5,000 unit PO DAILY 09/21/18 [Last Taken 09/21/18] Prednisone [Prednisone 20Mg] 20 mg PO BID #10 tab 09/21/18 [Last Taken Unknown] Azithromycin [Zithromax] 500 mg PO DAILY #4 tab 09/22/18 [Last Taken Unknown] Benzonatate [Tessalon Perle] 100 mg PO TID PRN #21 capsule 09/22/18 [Last Taken Unknown] Benzonatate [Tessalon Perles] 100 mg PO TID PRN #21 capsule 09/22/18 [Last Taken Unknown] Budesonide/Formoterol Fumarate [Symbicort 80-4.5 Mcg Inhaler] 6.9 gm IH BID #1 hfa.aer.ad 09/22/18 [Last Taken Unknown] Hydrocodone/Acetaminophen [Blackwell 10mg/325mg] 1 tab PO BID PRN #14 tab 09/22/18 [Last Taken Unknown] Prednisone [Deltasone] 40 mg PO DAILY 4 Days #8 tablet 09/22/18 [Last Taken Unknown] Discharge Plan - Discharge Instructions Instructions: Rib Fracture (DC), Acute Bronchitis (GEN) Additional Instructions: Medication instructions: 1. Use Symbicort inhaler twice daily as instructed. Your albuterol inhaler is to be used as needed. 2. Take Prednisone 40mg (2 tabs) once daily for the next 4 days. 3. Take Tesalone perles 100mg (1 tab) three times daily as needed for your cough. 4. Take Zithormax 500mg (1 tab) daily once daily for the next 4 days. 5. Take Blackwell 10/325mg (1 tab) twice daily as needed for your rib pain. Use incentive spirometer as shown by Respiratory therapy. Follow up with your Primary Care Doctor early next week. Stop smoking Quality Measures - Quality Measures Quality Measures: Documentation of Current Medications in Medical Record, Screening for High Blood Pressure and F/U Documented - Current Medications Quality Measure: Measure #130: Documentation of Current Medications Documentation of Current Medications: <Current Medications Documented/Reviewed> [G8427] - Blood Pressure Screening Quality Measure: Screening for High Blood Pressure and Follow-Up Documented Does Patient Have Any of the Following: No Blood Pressure Classification: Pre-Hypertensive BP Reading Systolic Measurement: 155 Diastolic Measurement: 89 Screening for High Blood Pressure: < Pre-Hypertensive BP, F/U Documented > [G8950] Pre-Hypertensive Follow-up Interventions: Follow-up with rescreen every year. First Hypertensive Follow-up Interventions: Lifestyle modifications., Referral to alternative/primary care provider. Lifestyle Modification: Weight Reduction, Dietary Approaches to Stop Hypertension (DASH) Eating Plan - Elder Abuse Suspicion Index EASI Reference Information: Tonya MERCADO, Demario C, Kiel D, Franchesca Geronimo.Development and validation of a tool to assist physicians identification of elder abuse: The Elder Abuse Suspicion Index (EASI ). Journal of Elder Abuse and Neglect, 2008; 20 (3): 276-300.
== END 2018-09-22 20:00 | disposition home or self-care (01) ==
LOC: ER 18:28 → MEDSURG 09-22 00:39
PROVIDERS: ADMIT Internal Medicine; ATTEND Internal Medicine
DX: J44.9 Chronic obstructive pulmonary disease, unspecified (principal); J43.9 Emphysema, unspecified; E87.6 Hypokalemia; S22.41XA Multiple fractures of ribs, right side, initial encounter for closed fracture; F17.210 Nicotine dependence, cigarettes, uncomplicated; Z29.9 Encounter for prophylactic measures, unspecified
CPT/HCPCS: 99285 ×2; 96365; 96366; 96375; 84132; 85025; 80048; 80053; 85379; 94640 ×3; 94664; 94010; 94761; 93005; 93010; G0378; 99220; J1650; J2930

== ENCOUNTER 2018-10-17 13:47 | Emergency (ER) | payer MEDICAID ==
--- NOTE | 2018-10-17 14:05 | Emergency Department Record ---
History of Present Illness - General Chief Complaint: Recheck - Other Stated Complaint: TEST RESULTS,BLOOD CLOT CONCERNS Time Seen by Provider: 10/17/18 13:52 Source: Patient, Family Mode of arrival: Ambulatory Limitations: No limitations - History of Present Illness Initial Comments: 63 yo female presents after being sent in by her PCP for abnormal lab tests. She was diagnosed with rib fractures in August with COPD. She followed up with her PCP. CXR, BNP and D-dimer per performed last Tuesday. Her D-dimer was 5. She was directed to the ED for further testing. The patient has three rib fractures on the right. She continues to have pain and feels short of breath. No fevers. Mild non productive cough. She has no leg pain or edema. She has a follow up ECHO this week as well on . She was sent in by Lilinaa Nunez CHIEF CARDIOPULMONARY TECHNOLOGIST per the patient. Complaint: Abnormal lab Onset/Timin -: Days(s) Initial Visit For: Other Returns Today for: Called because of abnormal lab/test Symptoms Since Prior Visit: No new symptoms Associated Symptoms: None Treatments Prior to Arrival: Other - Related Data Allergies Allergy/AdvReac Type Severity Reaction Status Date / Time No Known Drug Allergies Allergy Verified 09/21/18 18:32 Travel Screening - Travel/Exposure Within Last 30 Days Have you traveled within the last 30 days?: No Review of Systems Constitutional: Denies: Chills, Fever, Malaise, Night sweats, Weakness Eyes: Denies: Eye discharge, Eye pain, Photophobia, Vision change ENT: Denies: Congestion, Throat pain Respiratory: Reports: Cough, Dyspnea. Denies: Hemoptysis, Stridor, Wheezes Cardiovascular: Reports: Chest pain (right lateral ribs), Dyspnea on exertion. Denies: Edema, Palpitations, Syncope Endocrine: Denies: Fatigue, Polydipsia, Polyuria Gastrointestinal: Denies: Abdominal pain, Diarrhea, Nausea, Vomiting Genitourinary: Denies: Dysuria Musculoskeletal: Denies: Arthralgia, Back pain, Joint swelling, Myalgia Skin: Denies: Bruising, Change in color, Rash Neurological: Denies: Headache Psychiatric: Denies: Anxiety Hematological/Lymphatic: Denies: Blood Clots, Easy bleeding, Easy bruising Past Medical History - SOCIAL HISTORY Smoking Status: Light tobacco smoker (<10/day) - RESPIRATORY Hx Respiratory Disorders: No - CARDIOVASCULAR Hx Cardio Disorders: No - NEURO Hx Neuro Disorders: No - GI Hx GI Disorders: No - Hx Genitourinary Disorders: No - ENDOCRINE Hx Endocrine Disorders: No Hx Diabetes: No Hx Thyroid Disease: No - MUSCULOSKELETAL Hx Musculoskeletal Disorders: No - PSYCH Hx Psych Problems: No - HEMATOLOGY/ONCOLOGY Hx Hematology/Oncology Disorders: No Hx Cancer: No Family Medical History Any Significant Family History?: No Family Hx Comment (NOT TO BE USED IN PLACE OF ITEMS BELOW): denies Physical Exam - General General Appearance: Alert, Oriented x3, Cooperative, No acute distress Limitations: No limitations - Head Head exam: Atraumatic, Normocephalic, Normal inspection - Eye Eye exam: Normal appearance, PERRL. negative: Conjunctival injection, Scleral icterus - ENT ENT exam: Normal exam, Mucous membranes moist Ear exam: Normal external inspection Nasal Exam: Normal inspection Mouth exam: Normal external inspection - Neck Neck exam: Normal inspection - Respiratory Respiratory exam: Normal lung sounds bilaterally, Chest wall tenderness (tender right lateral chest wall). negative: Accessory muscle use, Decreased breath sounds, Prolonged expiratory, Rhonchi, Stridor, Wheezes - Cardiovascular Cardiovascular Exam: Regular rate, Normal rhythm, Normal heart sounds Peripheral Pulses: 2+: Radial (R), Radial (L) - GI/Abdominal GI/Abdominal exam: Soft. negative: Tenderness - Rectal Rectal exam: Deferred - exam: Deferred - Extremities Extremities exam: Normal inspection. negative: Full ROM, Joint swelling, Pedal edema, Tenderness - Back Back exam: Denies: CVA tenderness (R), CVA tenderness (L), Rash noted, Tenderness - Neurological Neurological exam: Alert, Oriented X3 - Psychiatric Psychiatric exam: Normal affect, Normal mood. negative: Agitated, Anxious - Skin Skin exam: negative: Erythema Course Vital Signs 10/17/18 13:53 Temperature 98.5 F Pulse Rate 97 H Respiratory 18 Rate Blood Pressure 156/107 Pulse Ox 96 - Reevaluation(s) Reevaluation #1: Vitals reviewed. No significant abnormalities. 10/17/18 14:04 The Outpatient visit was reviewed Normal ProBNP for age. CXR reviewed D-dimer is elevated. Normal GFR and CR on Tuesday. 10/17/18 14:12 10/17/18 14:[address] scan is negative for PE or acute process The patient has close follow up on for ongoing care of her rib fractures 10/17/18 15:00 We discussed reasons for a return sooner, home care and very close follow up after her ECHO that is scheduled Disposition Disposition: Discharge Clinical Impression: Rib fractures Qualifiers: Encounter type: initial encounter Rib fracture type: multiple ribs Fracture type: closed Laterality: right Qualified Code(s): S22.41XA - Multiple fractures of ribs, right side, initial encounter for closed fracture Disposition: Home, Self-Care Condition: (1) Good Instructions: Rib Fracture (ED) Additional Instructions: Call your doctor for the next available follow up appointment Review this ER visit and the tests performed with your family doctor Return to the ER for a recheck if worse, any new concerns or questions Take the prescriptions provided as directed Forms: Patient Portal Access Time of Disposition: 15:01 Quality - Quality Measures Quality Measures: N/A - Blood Pressure Screening Does Patient Have Any of the Following: No Blood Pressure Classification: Hypertensive Reading Systolic Measurement: 156 Diastolic Measurement: 107 Screening for High Blood Pressure: < Pre-Hypertensive BP, F/U Documented > [G8950] Pre-Hypertensive Follow-up Interventions: Referral to alternative/primary care provider.
--- NOTE | 2018-10-19 09:32 | CT ANGIOGRAM REPORT ---
EXAM: CTA OF THE CHEST WITH CONTRAST HISTORY: DIFFICULTY BREATHING, CHEST PAIN. TECHNIQUE: CTA of the chest was performed after intravenous administration of 80 ml of Omnipaque 350 contrast material. Sagittal and coronal MIP images were performed on an independent workstation. FINDINGS: No mass or filling defect to suggest pulmonary embolism. The thoracic aorta appears normal. The heart and pericardium appear normal. No mediastinal or hilar lymphadenopathy. Mild underlying centrilobular emphysematous change. Small left pleural effusion. Linear scarring in the right upper lobe. Atelectasis in both lung bases. The visualized upper abdominal structures are normal. IMPRESSION: 1. NO CTA FINDINGS SUGGESTIVE OF PULMONARY EMBOLISM. 2. SMALL LEFT PLEURAL EFFUSION. 3. ATELECTASIS IN BOTH LOWER LOBES. JOB NUMBER: [id number] MTDD
== END 2018-10-17 15:14 | disposition home or self-care (01) ==
LOC: ER 13:47
DX: R07.89 Other chest pain (principal); R79.89 Other specified abnormal findings of blood chemistry; S22.41XD Multiple fractures of ribs, right side, subsequent encounter for fracture with routine healing; R06.02 Shortness of breath; J44.9 Chronic obstructive pulmonary disease, unspecified; F17.210 Nicotine dependence, cigarettes, uncomplicated
CPT/HCPCS: 99283; 99284; 71275; Q9967